=== PATIENT | female | born 1990 | race African-American/Black ===

== ENCOUNTER 2017-07-18 15:31 | Emergency (ER) | payer MEDICAID, OTHER ==
[~2017-07-18] VITALS: Ht 157.5 cm; Wt 70.3 kg
[2017-07-18 16:56] LABS: Basophils # (auto) 0.1 uL; Basophils % (auto) 1.1 % (0.0-2.0); Eosinophils # (auto) 0.2 uL; Hematocrit 37.3 % (36.0-46.0); Hemoglobin 12.3 g/dL (12.2-16.2); Lymphocytes # (auto) 2.4 uL; Lymphocytes % (auto) 19.4 % (10.0-50.0); Mean Corpuscular Volume 97.1 fL (80.0-100.0); Mean Platelet Volume 7.7 fL (6.9-10.8); Monocytes # (auto) 1.1 uL; Monocytes % (auto) 8.7 % (0.0-12.0); Neutrophils # (auto) 8.6 uL; Neutrophils % (auto) 68.8 % (37.0-80.0); Platelet Count (auto) 334 10^3/uL (140-450); Red Cell Distribution Width 16.5 % (11.8-14.3); White Blood Cell 12.5 10^3/uL (4.4-10.8)
[2017-07-18 17:14] LABS: Albumin 2.9 g/dL (3.4-5.0); BUN/Creatinine Ratio 11.1; Calcium 8.7 mg/dL (8.5-10.1); Potassium 3.7 mmol/L (3.5-5.1)
[2017-07-18 17:15] LABS: Bilirubin, Total 0.2 mg/dL (0.2-1.0); Total Protein 7.2 g/dL (6.4-8.2)
[2017-07-18 17:39] LABS: Urine Bilirubin Negative (Negative); Urine Blood Negative /uL (Negative); Urine Color Yellow (Yellow); Urine Glucose Normal (Normal); Urine Ketone Negative (Negative); Urine Mucus FEW (None Seen); Urine Nitrite Negative (Negative); Urine RBC 5 /hpf (0 - 4); Urine Squamous Epithelial Cell FEW /hpf (<5); Urine Urobilinogen Normal (Negative); Urine pH 6.5 (5.0-8.0)
[2017-07-18 18:36] LABS: Platelet Estimate Adequate
[2017-07-18 18:37] LABS: Anisocytosis Slight; Ovalocytes FEW
[2017-07-18 19:00] VITALS: BP 141/95
== END 2017-07-18 20:42 | disposition home or self-care (01) ==
LOC: ER 15:31
DX: O26.892 Other specified pregnancy related conditions, second trimester (principal); S16.1XXA Strain of muscle, fascia and tendon at neck level, initial encounter; O99.332 Smoking (tobacco) complicating pregnancy, second trimester; S30.0XXA Contusion of lower back and pelvis, initial encounter; S39.91XA Unspecified injury of abdomen, initial encounter; Z3A.23 23 weeks gestation of pregnancy; V49.9XXA Car occupant (driver) (passenger) injured in unspecified traffic accident, initial encounter; Y93.89 Activity, other specified; Y99.8 Other external cause status; Y92.89 Other specified places as the place of occurrence of the external cause
CPT/HCPCS: 36415; 76805; 80053; 81001; 84702; 85025